=== PATIENT | female | born 1965 | race Caucasian/White ===

== ENCOUNTER → 2019-11-25 12:28 | Outpatient (CLI) | payer OTHER, SELFPAY ==
--- NOTE | ~2019-11-25 | MM_ITS ---
EXAMINATION: MM screening [facility] BI w leroy HISTORY: Screening mammogram TECHNIQUE: Craniocaudal and mediolateral oblique 3-D tomosynthesis images were obtained and synthetic 2-D images were generated. CAD analysis was submitted and interpreted. COMPARISON: 09/17/2018, 09/03/2017, 07/11/2016 BREAST PARENCHYMAL COMPOSITION: There are scattered areas of fibroglandular density. FINDINGS: Stable focal asymmetry is present in the upper outer quadrant of the left breast. There is no evidence of suspicious mass, calcification, or architectural distortion to suggest malignancy in e ither breast. There has been no suspicious interval change. IMPRESSION: 1. No mammographic evidence of malignancy. 2. Recommend routine screening mammography in one year. BI-RADS Category 2: Benign finding(s). Reviewed, dictated and finalized at location A.
== END ==
PROVIDERS: PCP Internal Medicine; Visit Provider Nurse Practitioner Obstetrics & Gynecology
DX: Z12.31 Encounter for screening mammogram for malignant neoplasm of breast (principal)
CPT/HCPCS: 77063; 77067

== ENCOUNTER → 2020-07-05 13:46 | Outpatient (CLI) | payer OTHER, SELFPAY ==
--- NOTE | ~2020-07-05 | XR_ITS ---
EXAMINATION: XR abdomen/kub 1V INDICATION: Microscopic hematuria TECHNIQUE: 03/30/2011 COMPARISON: None FINDINGS: Phleboliths are noted in the pelvis. No urolithiasis is identified. The visualized lung bas es are clear. The bowel gas pattern is normal. IMPRESSION: 1. No radiographic correlate for the patient's symptoms. Reviewed, dictated and finalized at location A.
--- NOTE | ~2020-07-05 | CT_ITS ---
EXAMINATION: CT abdomen pelvis wo/w con DATE: 07/05/2020 15:00 INDICATION: Microscopic hematuria TECHNIQUE: Computed tomography (CT) of the abdomen and pelvis was performed without intravenous contr ast. CT of the abdomen and pelvis was then performed with a total of 130 mL Omnipaque 350 intravenous contrast using a double-bolus technique for simultaneous opacification of the renal parenchyma and r enal collecting system. The dose-length product (DLP) was 2069.31 mGy-cm. Automated exposure control and iterative reconstruction technique were employed. COMPARISON: 03/30/2011 FINDINGS: The lung bases are clear. The heart size is normal. There is a 2 cm cyst in the left hepati c lobe. The spleen, pancreas, gallbladder, and adrenal glands are normal. No stones are present in t he kidneys, ureters, or bladder. Cysts of the kidneys measure up to 1.8 cm on the right. There is no hydronephrosis or hydroureter. No suspicious renal or urothelial lesion is identified. No pathologica lly enlarged abdominal or pelvic lymph nodes are identified. There is no free intraperitoneal gas or evidence of bowel obstruction. There is mild lumbar spondylosis. There is an approximately 5.8 x 4.2 cm enhancing mass situated anterior to the lower uterus. IMPRESSION: 1. No CT correlate for the patient's symptoms. 2. Pelvic mass situated anterior to the uterus, likely a fibroid. Follow-up pelvic ultrasound is coty mmended. Reviewed, dictated and finalized at location A. IMPRESSION: 1. No CT correlate for the patient's symptoms. 2. Pelvic mass situated anterior to the uterus, likely a fibroid. Follow-up pel drew ultrasound is recommended.
[2020-07-05 14:42] LABS: Estimated Glomerular Filt Rate > 60
== END ==
PROVIDERS: PCP Internal Medicine; Visit Provider Urology
DX: R31.29 Other microscopic hematuria (principal)
CPT/HCPCS: 74018; 74178; Q9967

== ENCOUNTER → 2020-12-31 12:39 | Outpatient (CLI) | payer OTHER, SELFPAY ==
--- NOTE | ~2020-12-31 | MM_ITS ---
EXAMINATION: MM screening [facility] BI w leroy HISTORY: Screening TECHNIQUE: Craniocaudal and mediolateral oblique 3-D tomosynthesis images were obtained and synthetic 2-D images were generated. CAD analysis was submitted and interpreted. COMPARISON: Comparison to multiple prior studies sequentially, with oldest reviewed study dated 06/26/2014. BREAST PARENCHYMAL COMPOSITION: There are scattered areas of fibroglandular density. FINDINGS: There is no evidence of suspicious mass, calcification, or architectural distortion to sugg est malignancy in either breast. There has been no suspicious interval change. IMPRESSION: 1. No mammographic evidence of malignancy. 2. Recommend routine screening mammography in one year. BI-RADS Category 1: Negative Reviewed, dictated and finalized at location A.
== END ==
PROVIDERS: Visit Provider Obstetrics & Gynecology
DX: Z12.31 Encounter for screening mammogram for malignant neoplasm of breast (principal)
CPT/HCPCS: 77063; 77067

== ENCOUNTER 2021-01-28 10:27 | Outpatient (CLI) | payer OTHER, SELFPAY | END 2021-01-28 10:28 | disposition home or self-care (01) | LOC: ANHSURGERY 10:30 | PROVIDERS: PCP Internal Medicine; Visit Provider Obstetrics & Gynecology | DX: D25.9 Leiomyoma of uterus, unspecified (principal); Z01.818 Encounter for other preprocedural examination | CPT/HCPCS: 36415; 86850; 86900; 86901 ==

== ENCOUNTER 2021-02-02 13:55 | Observation (INO) | payer OTHER, SELFPAY ==
[2021-01-26 09:18] VITALS: BMI 30.4
[2021-02-02] VITALS (28 sets, daily range): BP systolic 62–139; BP diastolic 28–83; PULSE 47–117; RESP 8–22; TEMP 35.8–37; O2SAT 97–100
[2021-02-02] MEDS: LACTATED RINGERS 1,000 ML 30 ML IV CONT ×3 (10:40→14:52)
[2021-02-02] MEDS: KETOROLAC 15 MG/ML VIAL (*BKC) IV PUSH (10:44)
[2021-02-02] MEDS: ACETAMINOPHEN 500 MG TABLET 1000 MG PO (10:44)
--- NOTE | 2021-02-02 11:42 | PM.IMHP ---
H&P: HPI History of Present Illness Date/Time: 02/02/21 11:42 55 y/o with pelvic pressure and increased urinary frequency. She was found to have a pelvic mass. An ultrasound exam shows a right lateral fibroid measuring 5.3 x 3.8 x 4.3 cm. She is interested in definitive management of her problem with hysterectomy. Chief Complaint: Here for hysterectomy Review of Systems Review of Systems: All systems reviewed & are unremarkable except as noted in HPI and below PMFSH Surgical History Surgical History History of loop electrical excision procedure (LEEP) Social History Social History Years smoked: 20 Smoking status: Former smoker Tobacco type: cigarettes Second hand tobacco smoke exposure: No Smoking end date: 04/02/04 Alcohol intake: current Drinks per week: 3 Substance use: never Living arrangements: with family Spiritual care concerns: No Meds Home Medications and Allergies Home Medications Medication Instructions Recorded Confirmed Type No Home Medications 11/16/20 02/02/21 History Allergies Allergy/AdvReac Type Severity Reaction Status Date / Time No Known Allergies Allergy Verified 02/02/21 10:53 Vital Signs Vital Signs - 24 hr 02/02/21 10:54 Temperature 36.5 C Pulse Rate 69 Respiratory Rate 18 Blood Pressure 139/83 Pulse Oximetry 100 Exam Const: Orientation/consciousness: patient oriented x3 Other: Well-developed, well-nourished female in no acute distress. Neck: Thyroid: thyroid normal Lymphatic: no lymphadenopathy noted (in neck, axilla or inguinal nodes) Resp: Effort & Inspection: normal respiratory effort Auscultation: clear to auscultation bilaterally Cardio: Rate: regular rate Rhythm: regular rhythm Heart sounds: S1 normal heart sound present and S2 normal heart sound present GI: Other: ABD: Soft, nontender, nondistended. No guarding or rebound tenderness. No hepatosplenomegaly. : General: Yes no CVA tenderness Other: External genitalia: normal female hair distribution, without lesion. Urethral meatus: no lesion, non prolapsed. Bladder: no mass, nontender Vagina: well-estrogenized, without lesion or discharge. No cystocele or rectocele. Cervix: no lesion or discharge. Uterus: small, anteverted, freely mobile, nontender Adnexa: no mass or tenderness. Anus/perineum: no lesions, nontender Back/Spine/Pelvis: Back: no CVA tenderness Skin: General skin exam: normal color and no rashes or lesions noted Neuro: General: patient oriented x3 Extrem: Other: Extremities: nontender with no edema Psych: Mental Status: mental status grossly normal Affect: normal affect Assessment and Plan Assessment and plan (1) Fibroid uterus: Qualifiers: Uterine leiomyoma location: unspecified location Qualified Code(s): D25.9 - Leiomyoma of uterus, unspecified Code(s): D25.9 - Leiomyoma of uterus, unspecified Status: Acute Assessment and Plan: A: Symptomatic fibroid uterus. P: We reviewed medical as well as surgical management options. She desires the latter. I have offered her a total vaginal hysterectomy with bilateral salpingectomies. We plan to leave the ovaries in situ. She understands risks of surgery to include risks of anesthesia, risks of pain, infection, bleeding, blood products, thromboembolic phenomena and damage to adjacent structures such as bowel, bladder, ureters, blood vessels and nerves. She understands that hysterectomy will render her permanently sterile. She understands all these risks and elects to proceed with surgery.
--- NOTE | 2021-02-02 11:54 | WPDANESEPPF ---
Anes - Initial Pre Proc Eval Procedure: Operation Date: 02/02/21 12:00 Proposed Procedures p Total Vaginal Hysterectomy, Bilateral Salpingo-oophorectomy - Benji Cuellar MD Date/Time: 02/02/21 11:54 Surgeon: Benji Cuellar MD Pre Op Diagnosis: Enlarged Uterus, Fibroids, Pelvic Pain Patient Data Age: 56 Gender: F Height: 1.7 m Weight: 91 kg Last Vital Signs Temp 36.5 C 02/02/21 10:54 Pulse 69 02/02/21 10:54 Resp 18 02/02/21 10:54 BP 139/83 02/02/21 10:54 Pulse Ox 100 02/02/21 10:54 Allergies Allergy/AdvReac Type Severity Reaction Status Date / Time No Known Allergies Allergy Verified 02/02/21 10:53 Home Medications Medication Instructions Recorded Confirmed Type No Home Medications 11/16/20 02/02/21 History Patient hx anesthesia problems: none Family hx anesthesia problems: none Results Review: All pre-operative results and documents have been reviewed as part of the pre-operative evaluation. [facility] Surgical History Surgical History History of loop electrical excision procedure (LEEP) Social History Social History Years smoked: 20 Smoking status: Former smoker Tobacco type: cigarettes Second hand tobacco smoke exposure: No Smoking end date: 04/02/04 Alcohol intake: current Drinks per week: 3 Substance use: never Living arrangements: with family Spiritual care concerns: No Anes - Eval Final PreProcedure Day of Procedure 02/02/21 11:54 Patient weight: obese Heart: regular rate and rhythm Lungs: clear to auscultation Airway: Mallampati scale class II Neurological: alert and oriented Last oral intake: >/= 8 hours ASA classification: II Emergent: no Anesthetic plan: proceed Anesthesia type and monitoring: general LMA and standard monitoring Results Review: All pre-operative results and documents have been reviewed as part of the pre-operative evaluation. Informed Consent: The patient's anesthetic plan and its attendant risks and benefits were discussed with the patient/family/POA. Questions were solicited and answers provided to the satisfaction of the patient/family/POA.
--- NOTE | 2021-02-02 12:06 | WPDHPUPDATE1 ---
History and Physical Update Update Date/Time: 02/02/21 12:06 History and Physical has been reviewed, including an updated exam of the patient. There are NO changes in the patient's condition. Reviewed with the patient and she would like both ovaries removed as well. Consent reads total vaginal hysterectomy with bilateral salpingo-oophorectomy. Risks, benefits, and alternatives have been discussed and questions answered. Patient agrees to proceed with procedure.
[2021-02-02] MEDS: ceFAZolin 2 GM/D5W 50 ML 2 GM/50 ML BAG IVPB (12:12)
--- NOTE | 2021-02-02 13:57 | P.OP_ITS ---
Procedure Note - Detailed Date of Procedure 02/02/21 Pre-op Diagnosis Symptomatic fibroid uterus Post-op Diagnosis same Procedure Performed Total vaginal hysterectomy with bilateral salpingooophorectomy Surgeon Benji Cuellar MD Anesthesia general Findings Enlarged, fibroid uterus. Normal-appearing bilateral Fallopian tubes. Small, simple-appearing cyst on left ovary. Otherwise, unremarkable bilateral ovaries. Description of Procedure The patient was taken to the operating room where she was prepared and draped in the usual sterile fashion in the dorsal lithotomy position. The bladder was drained with red rubber catheter. A weighted speculum was placed posteriorly. A Jeremiah retractor was used anteriorly. The cervix was grasped with a single- tooth tenaculum. Ten mL of sterile saline was infiltrated circumferentially around the cervix to aid in tissue plane dissection. The cervix was circumscribed using electrocautery. The peritoneal cavity was entered sharply posteriorly and a long weighted speculum was placed. The uterosacral and megan al ligaments on both sides were then clamped, transected and suture ligated using 0 Vicryl. These were tagged for later identification. The bladder was dissected off the cervix and lower uterine segment and reflected away. The LigaSure device was then used to clamp, ligate and transect the broad ligaments bilaterally. Finally, the utero-ovarian ligament, round ligament and tube complexes on both sides were able to be clamped, transected and suture ligated using 0 Vicryl. The specimen was passed off to be sent to pathology. The bilateral fallopian tubes were then dissected, clamped, ligated and transected using the LigaSure device and passed off the field. Finally, the bilateral infundibulopelvic ligaments were clamped, transected and suture ligated with 0 Vicryl, and the ovaries were able to be passed of to be sent to pathology. The pedicles were inspected and found to be hemostatic. The vaginal cuff angles were then transfixed to the ipsilateral cardinal uterosacral ligaments for support. The vaginal cuff was reapproximated using 0 Vicryl in a running, locked fashion. Hemostasis was excellent. A Sim catheter was placed. Vaginal packing soaked in Premarin cream was placed. Sponge, lap, needle and instrument counts were correct. The patient was awakened and taken to the recovery room in stable condition. I was present and scrubbed for the entire procedure. Estimated Blood Loss 400 Drains Yes (sim) Packing Yes (vaginal) Pathology yes (uterus, cervix, bilateral tubes and ovaries) Complications None Condition stable Disposition PACU
[2021-02-02] MEDS: ONDANSETRON INJ 4 MG/2 ML VIAL IV PUSH (14:28)
[2021-02-02] MEDS: ePHEDrine sulfate INJ 50 MG/ML AMPUL 25 MG IM (15:10)
[2021-02-02] MEDS: fentaNYL CITRATE INJ (*CRX) 100 MCG/2 ML VIAL 25 MCG IV PUSH (15:21)
--- NOTE | 2021-02-02 15:25 | SUR.PHASEI ---
Addendum entered by Elizabeth Alfonso RN 02/02/21 15:26: Note continued: Informed Dr Johnson, who came to bedside. New orders received, administered and charted per [facility] Original Note: Patient's blood pressures running soft (see V/S documentation) Informed Dr. barker
--- NOTE | 2021-02-02 16:00 | SUR.PHASEI ---
Dr. Johnson by to see patient and aware of V/S. States ok to send patient to the floor, recommends not getting patient out of bed tonight. Informed floor nurse Mamie of above.
[2021-02-02] MEDS: DEXTROSE 5%/0.45% SOD CHL 1,000 ML 125 ML IV CONT ×2 (16:18→21:58)
[2021-02-02] MEDS: LACTATED RINGERS 1,000 ML 999 ML IV CONT (16:56)
--- NOTE | 2021-02-02 17:43 | PM.GYNPNOP ---
DELIVERY DRIVER/SUPERVISOR - A/P Postoperative Procedures: Procedures Operation Date: 02/02/21 12:00 Actual Procedure Side Surgeon p Total Vaginal Hysterectomy, Bilateral Salpingo-oophorectomy Not Applicable Benji Cuellar MD Time Spent With Patient Time: Total time spent is greater than 50% in coordination of care (as documented) at patient's floor/unit and/or counseling patient: Time with patient: 15 - 25 minutes DELIVERY DRIVER/SUPERVISOR- PN:Subj Post-Op Subjective Date/time seen: 02/02/21 17:43 Called to see patient for low blood pressures. Pain is fine. No vaginal bleeding. Feels lightheaded, though. Approx 100 ml urine in last 1.5 hours. BP 70s/40s, with hr 100s. She has received 1 liter of fluids as a bolus, but has not improved clinically. Nursing unable to get IV access for hgb and for a second line. Due to clinical suspicion of acute blood loss, I have offered a diagnostic laparoscopy. Reviewed risks, benefits, alternatives in detail. Also reviewed risks / benefits associated with transfusion of blood products. The patient and her understand and agree. I have discussed her case with Dr. Fuentes of anesthesia as well. DELIVERY DRIVER/SUPERVISOR - PN: Obj Data Vital Signs Vital Signs: Vital Signs - 24 hr 02/02/21 10:54 02/02/21 13:56 02/02/21 14:00 Temperature 36.5 C 36.8 C Pulse Rate 69 60 57 L Respiratory Rate 18 8 L 18 Blood Pressure 139/83 121/68 121/68 Pulse Oximetry 100 100 100 02/02/21 14:15 02/02/21 14:30 02/02/21 14:45 Temperature Pulse Rate 53 L 47 L 57 L Respiratory Rate 13 8 L 22 H Blood Pressure 109/73 85/52 L 92/57 L Pulse Oximetry 100 97 98 02/02/21 15:00 02/02/21 15:15 02/02/21 15:30 Temperature 36.3 C L Pulse Rate 52 L 55 L 92 Respiratory Rate 18 10 L 12 Blood Pressure 90/60 L 80/51 L 98/57 L Pulse Oximetry 100 100 99 02/02/21 15:45 02/02/21 16:00 Temperature Pulse Rate 101 H 103 H Respiratory Rate 10 L 10 L Blood Pressure 80/58 L 91/65 L Pulse Oximetry 100 99 Intake/Output Intake/Output: Intake & Output 10/31/21 11/01/21 11/02/21 11/03/21 23:59 23:59 23:59 23:59 Intake Total 1250 Output Total 410 Balance 840 Meds/Results Medications: Active Medications Generic Name Dose Route Start Last Admin Trade Name Freq PRN Reason Stop Dose Admin Hydrocodone Bitart/Acetaminophen 1 tab 02/02/21 16:05 Hydrocodone/Acetaminophen (*Crx) 5-325 Mg Tablet PO Q3H PRN Pain Rated 5 or Less Hydrocodone Bitart/Acetaminophen 1 tab 02/02/21 16:05 Hydrocodone/Acetaminophen (*Crx) 10-325 Mg Tablet PO Q3H PRN Pain Rated 6 or Greater Docusate Sodium 100 mg 02/02/21 17:00 Docusate Sodium 100 Mg Capsule PO BID ZOE Enoxaparin Sodium 40 mg 02/02/21 21:00 Enoxaparin 40 Mg/0.4 Ml Syringe SUB-Q DAILY ZOE Dextrose/Sodium Chloride 1,000 mls @ 125 mls/hr 02/02/21 16:05 02/02/21 16:18 Dextrose 5% Sodium Chloride 0.45% IV CONT 125 mls/hr .Q8H ZOE Administration Lactated Ringer's 1,000 mls @ 999 mls/hr 02/02/21 16:51 Lr - Lactated Ringers Iv IV CONT 02/02/21 17:51 .Q1H1M STA Ibuprofen 600 mg 02/02/21 16:05 Ibuprofen 600 Mg Tablet PO Q6H PRN Cramping Ketorolac Tromethamine 30 mg 02/02/21 16:05 Ketorolac 30 Mg/Ml Vial (*Bkc) IV PUSH 02/07/21 16:04 Q6H PRN Pain Rated 4-6 Morphine Sulfate 4 mg 02/02/21 16:05 Morphine Sulfate (*Crx) 4 Mg/Ml Inj IV PUSH Q4H PRN Severe breakthrough pain Naloxone HCl 0.1 mg 02/02/21 16:05 Naloxone Hcl 0.4 Mg/Ml Vial IV PUSH Q2M PRN Respiratory rate less than 10 Ondansetron HCl 4 mg 02/02/21 16:05 Ondansetron Inj 4 Mg/2 Ml Vial IV PUSH Q6H PRN Nausea And Vomiting Simethicone 80 mg 02/02/21 16:05 Simethicone 80 Mg Tab.Chew PO Q2H PRN Gas
[2021-02-02 18:39] LABS: Basophils Absolute Auto 0.1 K/mm3 (0.0-0.1); Basophils Percent Auto 0.3 % (0.2-1.2); Hemoglobin 8.2 g/dL (12.0-15.0); Immature Granulocyte Absolute 0.13 K/mm3 (0.00-0.031); Immature Granulocyte Percent A 0.6 % (0-0.5); Lymphocytes Absolute Auto 1.69 K/mm3 (0.9-3.2); Lymphocytes Percent Auto 8.3 % (18.3-44.2); Mean Corpuscular HGB Conc 32.8 g/dl (32-36); Mean Corpuscular Volume 97.7 fl (80-100); Mean Platelet Volume 10.2 fl (7.4-10.4); Monocytes Absolute Auto 0.9 K/mm3 (0.1-0.6); Monocytes Percent Auto 4.4 % (2.6-8.5); Neutrophils Absolute Auto 17.7 K/mm3 (1.3-6.7); Neutrophils Percent Auto 86.4 % (45.5-73.1); Platelet Count Result 203 k/mm3 (150-375); Red Blood Count 2.56 M/mm3 (4.2-5.4); White Blood Count 20.4 K/mm3 (4.5-10.0)
[2021-02-02 18:47] LABS: Platelet Estimate Adequate (Adequate)
--- NOTE | 2021-02-02 19:17 | OBPPTRN ---
1614 Patient transferred to post room #289 via bed. Support person present. Oriented to unit, room, information board. She V/U'd.
[2021-02-02] MEDS: TRANEXAMIC ACID 1,000 MG/10 ML AMPUL 1000 MG IV PUSH (19:18)
--- NOTE | 2021-02-02 19:29 | W.PM.PROC2 ---
Procedure Note - Detailed Date of Procedure 02/02/21 Pre-op Diagnosis Hypotension Suspected postop bleed Post-op Diagnosis same Procedure Performed Diagnostic laparoscopy Evacuation of hemoperitoneum Hemostasis Surgeon Benji Cuellar MD Anesthesia general Findings 400 mL hemoperitoneum. Left ovarian pedicle hemostatic. Right ovarian pedicle and right edge of vaginal cuff a little friable. However, no obviously bleeding vessels. Vaginal cuff intact. Description of Procedure The patient was taken to the operating room where general endotracheal anesthesia was administered. The sim was left in place. The vaginal packing was withdrawn and there was no bleeding noted. The vaginal cuff was intact. She was prepared and draped in the usual sterile fashion in the dorsal lithotomy position. An infraumbilical skin incision was made with a scalpel. The abdomen was tented and a 5 millimeter bladeless trocar trocar was advanced under direct laparoscopic visualization. Pneumoperitoneum was administered using carbon dioxide gas. Two additional 5 mm ports were placed in the lower quadrants, again using bladeless trocars under direct laparoscopic visualization. A survey of the pelvis and abdomen yielded the findings noted above. Hemoperitoneum was evacuated. The pelvis was irrigated copiously with warmed normal saline. The questionably friable areas noted above were cauterized with monopolar cautery. Hemaderm was applied to the vaginal cuff and ovarian pedicles. Hemostasis was excellent. The trocars were withdrawn and the gas was allowed to escape. The skin incisions were reapproximated using 4-0 Vicryl in interrupted subcuticular fashion. Dermaflex was applied externally. She was given TXA 1 gram IV. Sponge, lap, needle and instrument counts were correct. The patient was awakened and taken to recovery in stable condition, where she is scheduled to receive 1 unit PRBC. I was present and scrubbed through the entire procedure. Estimated Blood Loss 425 Drains Yes (sim) Packing No Pathology none sent Complications None Condition stable Disposition PACU
--- NOTE | 2021-02-02 20:10 | PC.NURSE ---
1703 Attempted to draw a CBC no success. Called in a second RN to attempt and no success. Called L & D RN to attempt no success. Called a second L & D RN to attempt lab draw and to start second IV no success. 174 Dr Cuellar stated she needs to go back to the OR for an Diagnostic Laparotomy. [address] Fuentes was called to inform him of Dr. Hernandez plan. He V/U'd and stated they would be up to her room shortly to transport her to the OR. Consents signed and put on chart to go with pt. 1808 Anesthesia here. 1810 pt transported per bed to OR.
--- NOTE | 2021-02-02 20:19 | PC.NURSE ---
1638 pt stated that she is hot and she feels anxious and her pain is rated a 3 on the 0-10 scale. She has cramping in her lower abdomen. Her abdomen is soft. 1711 skin feels cool and clammy to touch. This was while attempts to draw her blood were not successful. Reported this to Dr. Cuellar.
--- NOTE | 2021-02-02 21:08 | SUR.PHASEI ---
Patient states she feel like I noticed it more when I'm breathing in. There's a little soreness to my right side/lung. Denies any shortness of breath, breathing non-labored, lung sounds clear, 02 sat 100 percent on 2L per nasal canula. Informed Dr. Fuentes of above, no new orders at this time, continue to monitor.
--- NOTE | 2021-02-02 21:35 | PC.NURSE ---
Returned to room 289 per hospital bed. Awake and alert. Skin warm and dry. Tolerating ice chips without complaints. No vaginal bleeding noted. Edy, spouse, at bedside.
--- NOTE | 2021-02-02 21:35 | PC.NURSE ---
Addendum entered by Georgina Jones RN 02/02/21 22:49: Report received on 02/02/21 @ 2666. Original Note: Telephone report received from Elizabeth JACQUARD LOOM FIXER.
[2021-02-02] MEDS: SIMETHICONE 80 MG TAB.CHEW PO (21:57)
[2021-02-03] VITALS (8 sets, daily range): BP systolic 110–137; BP diastolic 61–82; PULSE 93–120; RESP 16–20; TEMP 36.3–37.6; O2SAT 95–99
[2021-02-03] MEDS: SIMETHICONE 80 MG TAB.CHEW PO ×6 (03:18→20:18)
[2021-02-03 04:35] LABS: Basophils Percent Auto 0.1 % (0.2-1.2); Hematocrit 29.4 % (37.0-47.0); Hemoglobin 9.4 g/dL (12.0-15.0); Immature Granulocyte Absolute 0.07 K/mm3 (0.00-0.031); Immature Granulocyte Percent A 0.5 % (0-0.5); Lymphocytes Percent Auto 7.6 % (18.3-44.2); Mean Corpuscular Hemoglobin 30.8 pg (26-34); Mean Corpuscular Volume 96.4 fl (80-100); Mean Platelet Volume 10.1 fl (7.4-10.4); Monocytes Absolute Auto 0.9 K/mm3 (0.1-0.6); Monocytes Percent Auto 5.8 % (2.6-8.5); Neutrophils Absolute Auto 12.5 K/mm3 (1.3-6.7); Platelet Count Result 223 k/mm3 (150-375); Red Blood Count 3.05 M/mm3 (4.2-5.4); Red Cell Distribution Width 13.3 % (11.5-14.5); White Blood Count 14.5 K/mm3 (4.5-10.0)
[2021-02-03] MEDS: HYDROcodone/acetaminophen (*CRX) 5-325 MG TABLET 1 TAB PO ×3 (06:31→15:04)
--- NOTE | 2021-02-03 12:50 | WPDANESPN ---
Anes - Prog Note Post-Op Date/Time: 02/03/21 12:50 Cardiovascular status: normal Respiratory status: normal Airway patency: baseline Mental status: baseline Post-Op hydration status: other (light headedness when standing/walking) Vital Signs: Last Vital Signs Temp 36.6 C 02/03/21 08:10 Pulse 111 H 02/03/21 08:10 Resp 18 02/03/21 08:10 BP 122/77 02/03/21 08:10 Pulse Ox 96 02/03/21 08:10 Pain Score (VAS): 04/11 I/O: Intake & Output 02/02/21 02/03/21 02/03/21 23:59 07:59 15:59 Intake Total 750 1450 Output Total 120 425 75 Balance 630 1025 -75 Laboratory Tests 02/03/21 03:40 02/02/21 02/02/21 02/03/21 18:24 18:24 03:40 WBC 20.4 H 14.5 H RBC 2.56 L 3.05 L Hgb 8.2 L 9.4 L Hct 25.0 L 29.4 L MCV 97.7 96.4 MCH 32.0 30.8 MCHC 32.8 32.0 RDW 13.0 13.3 Plt Count 203 223 MPV 10.2 10.1 Immature Gran % (Auto) 0.6 H 0.5 Neut % (Auto) 86.4 H 86.0 H Lymph % (Auto) 8.3 L 7.6 L [place] % (Auto) 4.4 5.8 Eos % (Auto) 0.0 0.0 Baso % (Auto) 0.3 0.1 L Lymph # (Auto) 1.69 1.10 [place] # (Auto) 0.9 H 0.9 H Eos # (Auto) 0.0 0.0 Baso # (Auto) 0.1 0.0 Abs Immat Gran (auto) 0.13 H 0.07 H Absolute Neuts (auto) 17.7 H 12.5 H Absolute Nucleated RBC 0.0 0.0 Nucleated RBC % 0.0 0.0 Platelet Estimate Adequate Blood Type A Negative Antibody Screen Negative Crossmatch See Detail Patient Feedback: Patient satisfied with anesthetic care.
--- NOTE | 2021-02-03 12:53 | WPDANESPN ---
Anes - Prog Note Post-Op Date/Time: 02/03/21 12:53 Cardiovascular status: normal Respiratory status: normal Airway patency: baseline Mental status: baseline Post-Op hydration status: other (light headedness when standing/walking) Vital Signs: Last Vital Signs Temp 36.6 C 02/03/21 08:10 Pulse 111 H 02/03/21 08:10 Resp 18 02/03/21 08:10 BP 122/77 02/03/21 08:10 Pulse Ox 96 02/03/21 08:10 Pain Score (VAS): 06/09 I/O: Intake & Output 02/02/21 02/03/21 02/03/21 23:59 07:59 15:59 Intake Total 750 1450 Output Total 120 425 75 Balance 630 1025 -75 Laboratory Tests 02/03/21 03:40 02/02/21 02/02/21 02/03/21 18:24 18:24 03:40 WBC 20.4 H 14.5 H RBC 2.56 L 3.05 L Hgb 8.2 L 9.4 L Hct 25.0 L 29.4 L MCV 97.7 96.4 MCH 32.0 30.8 MCHC 32.8 32.0 RDW 13.0 13.3 Plt Count 203 223 MPV 10.2 10.1 Immature Gran % (Auto) 0.6 H 0.5 Neut % (Auto) 86.4 H 86.0 H Lymph % (Auto) 8.3 L 7.6 L [place] % (Auto) 4.4 5.8 Eos % (Auto) 0.0 0.0 Baso % (Auto) 0.3 0.1 L Lymph # (Auto) 1.69 1.10 [place] # (Auto) 0.9 H 0.9 H Eos # (Auto) 0.0 0.0 Baso # (Auto) 0.1 0.0 Abs Immat Gran (auto) 0.13 H 0.07 H Absolute Neuts (auto) 17.7 H 12.5 H Absolute Nucleated RBC 0.0 0.0 Nucleated RBC % 0.0 0.0 Platelet Estimate Adequate Blood Type A Negative Antibody Screen Negative Crossmatch See Detail Patient Feedback: Patient satisfied with anesthetic care.
[2021-02-03] MEDS: DEXTROSE 5%/0.45% SOD CHL 1,000 ML 100 ML IV CONT (13:15)
--- NOTE | 2021-02-03 18:33 | PM.GYNPNOP ---
ROLLER CHECKER - A/P Postoperative Procedures: Procedures Operation Date: 02/02/21 12:00 Actual Procedure Side Surgeon p Total Vaginal Hysterectomy, Bilateral Salpingo-oophorectomy Not Applicable Benji Cuellar MD Operation Date: 02/02/21 18:00 Actual Procedure Side Surgeon p Diagnostic Laparoscopy Pos Lap Not Applicable Benji Cuellar MD A: POD#1, doing well overall, but still with some pain and lightheadedness. P: Best to keep overnight and plan to send home tomorrow. Time Spent With Patient Time with patient: 15 - 25 minutes ROLLER CHECKER- PN:Subj Post-Op Subjective Date/time seen: 02/03/21 18:33 Still has some sharp pain in upper abdomen, but passing flatus. Pain overall improving. No vaginal bleeding. Still lightheaded with movement. Review of Systems Review of Systems: All systems reviewed & are unremarkable except as noted in HPI and below Exam Narrative: AVSS I/O OK ABD soft, nontender. Incisions c/d/i. EXT nontender ROLLER CHECKER - PN: Obj Data Vital Signs Vital Signs: Vital Signs - 24 hr 02/02/21 19:31 02/02/21 19:45 02/02/21 20:00 Temperature 37.0 C 36.6 C Pulse Rate 86 72 68 Respiratory Rate 12 11 L 10 L Blood Pressure 89/47 L 78/47 L 92/56 L Pulse Oximetry 100 100 100 02/02/21 20:15 02/02/21 20:30 02/02/21 20:45 Temperature 36.6 C Pulse Rate 71 68 71 Respiratory Rate 9 L 10 L 12 Blood Pressure 88/55 L 77/43 L 76/57 L Pulse Oximetry 100 100 100 02/02/21 20:55 02/02/21 21:10 02/02/21 21:26 Temperature Pulse Rate 74 76 83 Respiratory Rate 12 12 16 Blood Pressure 100/72 103/68 94/56 L Pulse Oximetry 100 100 100 02/02/21 21:35 02/03/21 00:00 02/03/21 03:15 Temperature 36.6 C 36.3 C L 37.4 C Pulse Rate 95 93 110 H Respiratory Rate 16 16 18 Blood Pressure 97/63 L 111/71 112/69 Pulse Oximetry 100 99 98 02/03/21 04:43 02/03/21 06:30 02/03/21 08:10 Temperature 37.6 C 36.6 C Pulse Rate 112 H 111 H Respiratory Rate 18 18 18 Blood Pressure 126/76 122/77 Pulse Oximetry 98 95 96 02/03/21 11:00 02/03/21 15:00 Temperature 36.4 C 36.8 C Pulse Rate 113 H 120 H Respiratory Rate 20 20 Blood Pressure 123/70 137/82 Pulse Oximetry 97 Intake/Output Intake/Output: Intake & Output 01/31/21 02/01/21 02/02/21 02/03/21 23:59 23:59 23:59 23:59 Intake Total 1600 4550 Output Total 530 1975 Balance 1070 2575 Meds/Results Medications: Active Medications Generic Name Dose Route Start Last Admin Trade Name Freq PRN Reason Stop Dose Admin Hydrocodone Bitart/Acetaminophen 1 tab 02/02/21 21:26 02/03/21 15:04 Hydrocodone/Acetaminophen (*Crx) 5-325 Mg Tablet PO 1 tab Q3H PRN Administration Pain Rated 5 or Less Hydrocodone Bitart/Acetaminophen 1 tab 02/02/21 21:26 Hydrocodone/Acetaminophen (*Crx) 10-325 Mg Tablet PO Q3H PRN Pain Rated 6 or Greater Estradiol 0.1 mg 02/03/21 18:05 Estradiol 7 Day 0.1 Mg Patch TRANSDERM Q7D ZOE Dextrose/Sodium Chloride 1,000 mls @ 100 mls/hr 02/03/21 12:55 02/03/21 18:22 Dextrose 5% Sodium Chloride 0.45% IV CONT 0 mls/hr .Q10H ZOE Infusion Metoclopramide HCl 10 mg 02/02/21 21:26 Metoclopramide Hcl Inj 10 Mg/2 Ml Vial IV PUSH Q6H PRN Nausea Morphine Sulfate 4 mg 02/02/21 21:26 Morphine Sulfate (*Crx) 4 Mg/Ml Inj IV PUSH Q4H PRN Pain Rated 7-10 Naloxone HCl 0.1 mg 02/02/21 21:26 Naloxone Hcl 0.4 Mg/Ml Vial IV PUSH Q2M PRN Respiratory rate less than 10 Ondansetron HCl 4 mg 02/02/21 21:26 Ondansetron Inj 4 Mg/2 Ml Vial IV PUSH Q6H PRN Nausea Simethicone 80 mg 02/02/21 21:26 02/03/21 15:05 Simethicone 80 Mg Tab.Chew PO 80 mg Q2H PRN Administration Gas Labs CBC & Chem 7: 02/03/21 03:40 Labs: Laboratory Results - last 24 hr 02/02/21 02/02/21 02/03/21 18:24 18:24 03:40 WBC 20.4 H 14.5 H RBC 2.56 L 3.05 L Hgb 8.2 L 9.4 L Hct 25.0 L 29.4 L MCV 97.7 96.4 M
[2021-02-03] MEDS: ESTRADIOL 7 DAY 0.1 MG PATCH TRANSDERM (20:18)
[2021-02-03] MEDS: HYDROcodone/acetaminophen (*CRX) 10-325 MG TABLET 1 TAB PO (20:20)
[2021-02-04] MEDS: HYDROcodone/acetaminophen (*CRX) 10-325 MG TABLET 1 TAB PO ×2 (05:15→09:38)
[2021-02-04] MEDS: SIMETHICONE 80 MG TAB.CHEW PO ×2 (05:19→09:38)
[2021-02-04 08:05] VITALS: BP 108/61; PULSE 88; RESP 18; TEMP 36.8; O2SAT 94
--- NOTE | 2021-02-04 08:53 | PM.GYNPNOP ---
DEVELOPMENTAL MATHEMATICS PROFESSOR - A/P Postoperative Procedures: Procedures Operation Date: 02/02/21 12:00 Actual Procedure Side Surgeon p Total Vaginal Hysterectomy, Bilateral Salpingo-oophorectomy Not Applicable Benji Cuellar MD Operation Date: 02/02/21 18:00 Actual Procedure Side Surgeon p Diagnostic Laparoscopy Pos Lap Not Applicable Benji Cuellar MD A: POD#2, doing well. P: Home to f/u 4 weeks. Time Spent With Patient Time with patient: less than 15 minutes DEVELOPMENTAL MATHEMATICS PROFESSOR- PN:Subj Post-Op Subjective Date/time seen: 02/04/21 08:53 Interval history: Pain OK. Tolerating diet. Voiding. Would like to go home. Exam Narrative: AVSS I/O OK ABD soft, nontender. Incisions c/d/i. EXT nontender DEVELOPMENTAL MATHEMATICS PROFESSOR - PN: Obj Data Vital Signs Vital Signs: Vital Signs - 24 hr 02/03/21 11:00 02/03/21 15:00 02/03/21 20:00 Temperature 36.4 C 36.8 C 36.8 C Pulse Rate 113 H 120 H 102 H Respiratory Rate 20 20 18 Blood Pressure 123/70 137/82 110/61 Pulse Oximetry 97 Intake/Output Intake/Output: Intake & Output 02/01/21 02/02/21 02/03/21 02/04/21 23:59 23:59 23:59 23:59 Intake Total 1600 4550 860 Output Total 530 1975 1750 Balance 1070 2575 -890 Meds/Results Medications: Active Medications Generic Name Dose Route Start Last Admin Trade Name Freq PRN Reason Stop Dose Admin Hydrocodone Bitart/Acetaminophen 1 tab 02/02/21 21:26 02/03/21 15:04 Hydrocodone/Acetaminophen (*Crx) 5-325 Mg Tablet PO 1 tab Q3H PRN Administration Pain Rated 5 or Less Hydrocodone Bitart/Acetaminophen 1 tab 02/02/21 21:26 02/04/21 05:15 Hydrocodone/Acetaminophen (*Crx) 10-325 Mg Tablet PO 1 tab Q3H PRN Administration Pain Rated 6 or Greater Estradiol 0.1 mg 02/03/21 18:05 02/03/21 20:18 Estradiol 7 Day 0.1 Mg Patch TRANSDERM 0.1 mg Q7D ZOE Administration Metoclopramide HCl 10 mg 02/02/21 21:26 Metoclopramide Hcl Inj 10 Mg/2 Ml Vial IV PUSH Q6H PRN Nausea Morphine Sulfate 4 mg 02/02/21 21:26 Morphine Sulfate (*Crx) 4 Mg/Ml Inj IV PUSH Q4H PRN Pain Rated 7-10 Naloxone HCl 0.1 mg 02/02/21 21:26 Naloxone Hcl 0.4 Mg/Ml Vial IV PUSH Q2M PRN Respiratory rate less than 10 Ondansetron HCl 4 mg 02/02/21 21:26 Ondansetron Inj 4 Mg/2 Ml Vial IV PUSH Q6H PRN Nausea Simethicone 80 mg 02/02/21 21:26 02/04/21 05:19 Simethicone 80 Mg Tab.Chew PO 80 mg Q2H PRN Administration Gas Labs CBC & Chem 7: 02/03/21 03:40
--- NOTE | 2021-02-04 08:55 | PM.DS ---
DS: Admitting Diagnosis Discharge Date 02/04/21 Admitting Diagnosis Symptomatic fibroid uterus DS: Discharge Diagnosis Discharge Diagnosis (1) Fibroid uterus: Qualifiers: Uterine leiomyoma location: unspecified location Qualified Code(s): D25.9 - Leiomyoma of uterus, unspecified Code(s): D25.9 - Leiomyoma of uterus, unspecified Status: Acute DS: Summary Hospital Course Hospital Course: 56 y/o female who presented for scheduled TVHBSO. Surgery was uneventful. However, several hours later, she was found to be tachycardic and hypotensive, feeling lightheaded. Returned to OR for laparoscopy. Clotted blood seen in peritoneal cavity, but this only totalled 400mL. Friable tissue seen, but no obvious source of bleeding. Received 1 unit PRBC. [place] lightheaded on postop day 1, but was able to go home on postop day 2 to f/u in office. DS: Data Data Completed and Pending Pending studies at discharge: Pending at discharge 02/02/21 13:35 Surgical [PTH] Routine Discharge Plan Discharge Attending physician on discharge: Benji Cuellar Discharging Clinician: Benji Cuellar Patient Disposition: Home, Self-Care Activity: may shower, may drive after 2 weeks and pelvic rest Diet: regular Wound Care Instructions: incision open to air Discharge Instructions: Call or return if temperature above 100.4? F, increased abdominal pain, increased vaginal bleeding or any new problems. Patient Instructions: Hysterectomy (DC) Stand Alone Forms: General Discharge Information Follow-up/Referrals: Benji Cuellar MD [Physician] - 4 Weeks Discharge Medications: New estradiol 0.1 mg/24 hr patch weekly 1 patch transdermal WEEKLY Qty: 4 RF: 3 hydrocodone-acetaminophen 5-325 mg tablet 1 - 2 tablet PO Q6H PRN (Reason: pain) Qty: 30 RF: 0 No Action No Home Medications RF: 0 Date of admission: 02/02/21 13:55 Primary Care Provider: Gen Adhikari Admitting Provider: Benji Cuellar Attending physician on admission: Benji Cuellar Condition: Stable
== END 2021-02-04 13:40 | disposition home or self-care (01) ==
LOC: ANHSURGERY 14:34 → ANHOB2 17:49
PROVIDERS: Student in an Organized Health Care Education/Training Program; Admitting Provider Obstetrics & Gynecology; PCP Internal Medicine; Visit Provider Obstetrics & Gynecology
PROC: (CPT 58260; principal; 2021-02-02 12:00)
DX: D25.1 Intramural leiomyoma of uterus (principal); D25.2 Subserosal leiomyoma of uterus; N99.820 Postprocedural hemorrhage of a genitourinary system organ or structure following a genitourinary system procedure; N83.202 Unspecified ovarian cyst, left side; R35.0 Frequency of micturition; N84.0 Polyp of corpus uteri; N80.0 Endometriosis of uterus; I95.81 Postprocedural hypotension; Y83.8 Other surgical procedures as the cause of abnormal reaction of the patient, or of later complication, without mention of misadventure at the time of the procedure; Z87.891 Personal history of nicotine dependence
CPT/HCPCS: 58262; 58662; 36415; 36430; 85025; 86850; 86900; 86901; 86920; 88307; A9270; G0378; J0131; J0330; J0690; J1100; J1885; J2250; J2270; J2370; J2405; J2704; J3010; J7030; J7040; J7120; P9016

== ENCOUNTER → 2022-01-17 15:00 | Outpatient (CLI) | payer OTHER, SELFPAY ==
--- NOTE | ~2022-01-17 | MM_ITS ---
EXAMINATION: MM screening [facility] BI w [facility] HISTORY: Screening TECHNIQUE: Craniocaudal and mediolateral oblique 3-D tomosynthesis images were obtained and synthetic 2-D images were generated. CAD analysis was submitted and interpreted. COMPARISON: Comparison to multiple prior studies sequentially, with oldest reviewed study dated 06/28. BREAST PARENCHYMAL COMPOSITION: There are scattered areas of fibroglandular density. FINDINGS: There is no evidence of suspicious mass, calcification, or architectural distortion to sugg est malignancy in either breast. There has been no suspicious interval change. IMPRESSION: 1. No mammographic evidence of malignancy. 2. Recommend routine screening mammography in one year. BI-RADS Category 1: Negative Reviewed, dictated and finalized at location A.
== END ==
PROVIDERS: PCP Family Medicine; Visit Provider Obstetrics & Gynecology
DX: Z12.31 Encounter for screening mammogram for malignant neoplasm of breast (principal)
CPT/HCPCS: 77063; 77067

== ENCOUNTER → 2023-04-12 11:02 | Outpatient (CLI) | payer OTHER, SELFPAY ==
--- NOTE | ~2023-04-12 | MM_ITS ---
EXAMINATION: MM screening [facility] BI w [facility]eroy HISTORY: Screening mammogram TECHNIQUE: Craniocaudal and mediolateral oblique 3-D tomosynthesis images were obtained and synthetic 2-D images were generated. CAD analysis was submitted and interpreted. COMPARISON: 01/17/2022, 12/31/2020, 11/25/2019 BREAST PARENCHYMAL COMPOSITION: There are scattered areas of fibroglandular density. FINDINGS: No suspicious mass, calcification, or architectural distortion are identified in either indira ast to suggest malignancy. There has been no suspicious interval change. IMPRESSION: 1. No mammographic evidence of malignancy. 2. Recommend routine screening mammography in one year. BI-RADS Category 1: Negative Reviewed, dictated and finalized at location A. ENTOLOGIST
== END ==
PROVIDERS: PCP Obstetrics & Gynecology; Visit Provider Obstetrics & Gynecology
DX: Z12.31 Encounter for screening mammogram for malignant neoplasm of breast (principal)
CPT/HCPCS: 77063; 77067

== ENCOUNTER 2024-04-22 07:50 | Outpatient (CLI) | payer OTHER, SELFPAY ==
--- NOTE | ~2024-04-22 | MM_ITS ---
EXAMINATION: MM screening [facility] BI w [facility] HISTORY: Screening TECHNIQUE: Craniocaudal and mediolateral oblique 3-D tomosynthesis images were obtained and synthetic 2-D images were generated. CAD analysis was submitted and interpreted. COMPARISON: Comparison to multiple prior studies sequentially, with oldest reviewed study dated 07/2017. BREAST PARENCHYMAL COMPOSITION: Not Dense: The breasts are almost entirely fatty. FINDINGS: There is no evidence of suspicious mass, calcification, or architectural distortion to sugg est malignancy in either breast. There has been no suspicious interval change. IMPRESSION: 1. No mammographic evidence of malignancy. 2. Recommend routine screening mammography in one year. BI-RADS Category 1: Negative Reviewed, dictated and finalized at location A. N CHAIN PULLER
== END 2024-04-22 07:51 | disposition home or self-care (01) ==
LOC: MICIMG 07:51
PROVIDERS: PCP Obstetrics & Gynecology; Visit Provider Obstetrics & Gynecology
DX: Z12.31 Encounter for screening mammogram for malignant neoplasm of breast (principal)
CPT/HCPCS: 77063; 77067

== ENCOUNTER 2025-01-15 15:52 | Outpatient (CLI) | payer OTHER, SELFPAY ==
--- NOTE | ~2025-01-15 | US_ITS ---
EXAMINATION: US soft tissue UE LT, 01/15/2025 15:54 CDT HISTORY: eval left forearm mass lipoma vs cyst - nerve? Comparison: None Technique: Holbrook-scale and color Doppler images were obtained. Findings: Correlating with the palpable area there is a large slightly heterogeneous appearing solid focus measuring 1.5 x 0.6 x 1.7 cm without abnormal flow. Adjacent focus measures 2.8 x 1.7 x 1.5 cm. IMPRESSION: Probable subcutaneous lipomas however nonspecific heterogeneity is noted which is atypical. Contrast-enhanced MRI is suggested to assess Reviewed, dictated and finalized at location P.
== END 2025-01-15 15:53 | disposition home or self-care (01) ==
LOC: MICIMG 15:53
PROVIDERS: PCP Nurse Practitioner Family; Visit Provider Plastic Surgery
DX: R22.32 Localized swelling, mass and lump, left upper limb (principal)
CPT/HCPCS: 76882

== ENCOUNTER → 2025-02-09 15:12 | Outpatient (REF) | payer OTHER, SELFPAY ==
--- NOTE | 2025-02-09 15:12 | S_PTH ---
PATIENT: Nancy Ricci LOC: [facility] U#:[id number] AGE/SX: 60/F ROOM: RE02/09/[address]: Liudmila Gibson MD : 1965 BED: DIS: SPEC #: [id number] RECD: 02/10/25 07:25 STATUS: MJ CABRAL #: [id number] CORNELIUS: 02/09/25 15:[address]: Liudmila Gibson DEPT: [facility] Surgical RECD BY: Maribel Aparicio ENTERED: 02/10/25 07:26 SP TYPE: Surgical OTHR DR: Marah Rosado APRN Tissues: A - Mass Procedures: Hematoxylin and Eosin Stain Gross and Microscopic Level 3
== END ==
LOC: ANHLAB 15:12
PROVIDERS: PCP Nurse Practitioner Family; Visit Provider Plastic Surgery
DX: D17.22 Benign lipomatous neoplasm of skin and subcutaneous tissue of left arm (principal)
CPT/HCPCS: 88304